=== PATIENT | male | born 1945 | race Caucasian/White ===

== ENCOUNTER → 2023-03-30 | Outpatient (CLI) | payer OTHER, MEDICARE ==
[~2023-03-30] MED LIST: CASO50TA5 PO; FLOM0.4C39 PO; HYDR12CA PO; LOSA100T46 PO; OMEG10002 PO; OMEP1CAP73 PO; PRES10CA2 PO; PRIM50TA6 PO; PROP120C PO; VITMTA PO
== END ==
LOC: M ONCR 08:23
PROVIDERS: ATTEND General Practice
DX: C61 Malignant neoplasm of prostate (principal); R97.21 Rising PSA following treatment for malignant neoplasm of prostate; Z71.2 Person consulting for explanation of examination or test findings; Z77.098 Contact with and (suspected) exposure to other hazardous, chiefly nonmedicinal, chemicals; Z79.899 Other long term (current) drug therapy; Z80.42 Family history of malignant neoplasm of prostate; Z87.891 Personal history of nicotine dependence; Z92.3 Personal history of irradiation
CPT/HCPCS: 84153; G0463

== ENCOUNTER → 2023-04-13 | Outpatient (CLI) | payer MEDICARE, OTHER ==
[~2023-04-13] VITALS: Ht 177.8 cm; Wt 82.2 kg
[~2023-04-13] MED LIST changes: +CIPR750T2 PO; +LORA1TAB23 PO
[2023-04-13 14:48] VITALS: BP 169/82; O2SAT 95
[2023-04-13] MEDS: LIDOCAINE 2% MDV 20ML VIAL XX ONE (15:12)
== END ==
LOC: M ONCR 14:31
PROVIDERS: ATTEND General Practice
DX: C61 Malignant neoplasm of prostate (principal)
CPT/HCPCS: 55874; A4648; C1889

== ENCOUNTER 2023-04-20 13:42 | Outpatient (RCR) | payer MEDICARE, OTHER | END 2023-05-04 | LOC: M ONCR 13:42 | PROVIDERS: ATTEND General Practice | DX: Z51.0 Encounter for antineoplastic radiation therapy (principal); C61 Malignant neoplasm of prostate ==

== ENCOUNTER 2023-06-02 07:59 | Outpatient (RCR) | payer MEDICARE, OTHER | END 2023-06-04 | LOC: M ONCR 07:59 | PROVIDERS: ATTEND General Practice | DX: Z51.0 Encounter for antineoplastic radiation therapy (principal); C61 Malignant neoplasm of prostate ==

== ENCOUNTER 2023-06-15 07:56 | Outpatient (RCR) | payer OTHER | END 2023-07-04 | LOC: M ONCR 07:56 | PROVIDERS: ATTEND General Practice | DX: Z51.0 Encounter for antineoplastic radiation therapy (principal); C61 Malignant neoplasm of prostate ==

== ENCOUNTER → 2023-08-22 | Outpatient (CLI) | payer OTHER, MEDICARE ==
[~2023-08-22] MED LIST changes: +MYRB50TA PO; +OXYB-54 PO
[2023-08-22 10:53] LABS: PROSTATIC SPECIFIC AG MONITOR 0.04 NG/ML (< 4.00)
== END ==
LOC: M ONCR 09:14
PROVIDERS: ATTEND General Practice
DX: C61 Malignant neoplasm of prostate (principal); R39.12 Poor urinary stream; R30.0 Dysuria; Z71.2 Person consulting for explanation of examination or test findings; Z77.098 Contact with and (suspected) exposure to other hazardous, chiefly nonmedicinal, chemicals; Z92.3 Personal history of irradiation; Z92.29 Personal history of other drug therapy; Z87.891 Personal history of nicotine dependence; Z79.891 Long term (current) use of opiate analgesic; Z79.899 Other long term (current) drug therapy
CPT/HCPCS: 36415; 84153; 84403; G0463

== ENCOUNTER → 2024-02-21 | Outpatient (CLI) | payer OTHER, MEDICARE ==
[2024-02-21 13:30] LABS: PROSTATIC SPECIFIC AG MONITOR 0.04 NG/ML (< 4.00)
== END ==
LOC: M ONCR 08:49
PROVIDERS: ATTEND General Practice
DX: C61 Malignant neoplasm of prostate (principal); R35.1 Nocturia; E29.1 Testicular hypofunction; Z92.3 Personal history of irradiation; Z77.098 Contact with and (suspected) exposure to other hazardous, chiefly nonmedicinal, chemicals; Z87.891 Personal history of nicotine dependence; Z79.899 Other long term (current) drug therapy; Z92.29 Personal history of other drug therapy
CPT/HCPCS: 36415; 84153; 84403; G0463

== ENCOUNTER → 2024-09-11 | Outpatient (CLI) | payer OTHER, MEDICARE ==
[~2024-09-11] MED LIST changes: -FLOM0.4C39 PO; +TAMS-18 PO
== END ==
LOC: M ONCR 11:19
PROVIDERS: ATTEND General Practice
DX: C61 Malignant neoplasm of prostate (principal); Z77.098 Contact with and (suspected) exposure to other hazardous, chiefly nonmedicinal, chemicals; Z79.899 Other long term (current) drug therapy; Z87.891 Personal history of nicotine dependence; Z92.3 Personal history of irradiation; Z92.29 Personal history of other drug therapy